=== PATIENT | male | born 1940 | race Caucasian/White ===

== ENCOUNTER 2018-01-13 20:11 | Inpatient (IN) | payer OTHER ==
[~2018-01-13] VITALS: Ht 160 cm; Wt 74.8 kg
[2018-01-13] MEDS ORDERED: DURAGESIC1 EAC1 (20:19)
[2018-01-13] MEDS ORDERED: TAMS0.4C (20:20)
[2018-01-13] MEDS ORDERED: XARELTO15 MG (20:20)
[2018-01-13] MEDS ORDERED: LASIX20 MG (20:20)
[2018-01-13] MEDS ORDERED: RELAFEN (20:21)
[2018-01-13] MEDS ORDERED: DAFLONEX-XL TA1 EACH (20:21)
[2018-01-19] MEDS ORDERED: INTEGRA F CAPS1 EACH PO (18:31)
[2018-01-19] MEDS ORDERED: OXYC1TAB9 PO (18:32)
== END 2018-01-19 23:02 | disposition home or self-care (01) | DRG 470 ==
LOC: ER 20:11 → SURG 01-14 06:38 → MEDI 01-14 06:38 → SURG 01-17 19:02
PROVIDERS: Orthopaedic Surgery
PROC: 0MBM0ZZ Excision of Left Hip Bursa and Ligament, Open Approach (ICD-10-PCS; 2018-01-17)
PROC: 0SRS0JZ Replacement of Left Hip Joint, Femoral Surface with Synthetic Substitute, Open Approach (ICD-10-PCS; principal; 2018-01-17 13:00)
DX: S72.032A Displaced midcervical fracture of left femur, initial encounter for closed fracture (principal); C79.51 Secondary malignant neoplasm of bone; M81.0 Age-related osteoporosis without current pathological fracture; W19.XXXA Unspecified fall, initial encounter; D63.8 Anemia in other chronic diseases classified elsewhere; E11.9 Type 2 diabetes mellitus without complications; I87.8 Other specified disorders of veins; I10 Essential (primary) hypertension; C61 Malignant neoplasm of prostate; J45.998 Other asthma; M10.9 Gout, unspecified; Y92.89 Other specified places as the place of occurrence of the external cause; Y93.89 Activity, other specified; Z95.0 Presence of cardiac pacemaker

== ENCOUNTER 2018-01-27 20:05 | Emergency (ER) | payer OTHER ==
[~2018-01-27] VITALS: Ht 162.6 cm; Wt 74.8 kg
[~2018-01-27 20:05] MED LIST: DAFLONEX-XL TA1 EACH; DURAGESIC1 EAC1; INTEGRA F CAPS1 EACH PO; LASIX20 MG; OXYC1TAB9 PO; RELAFEN; TAMS0.4C; XARELTO15 MG
== END 2018-01-27 23:04 | disposition home or self-care (01) ==
LOC: ER 20:05
DX: T81.31XA Disruption of external operation (surgical) wound, not elsewhere classified, initial encounter (principal); I10 Essential (primary) hypertension; Z74.01 Bed confinement status; Y83.8 Other surgical procedures as the cause of abnormal reaction of the patient, or of later complication, without mention of misadventure at the time of the procedure; Y92.89 Other specified places as the place of occurrence of the external cause

== ENCOUNTER 2018-01-28 16:02 | Emergency (ER) | payer OTHER ==
[~2018-01-28] VITALS: Ht 160 cm; Wt 74.8 kg
== END 2018-01-28 22:22 | disposition home or self-care (01) ==
LOC: ER 16:02
DX: L76.34 Postprocedural seroma of skin and subcutaneous tissue following other procedure (principal); D64.89 Other specified anemias; I10 Essential (primary) hypertension

== ENCOUNTER 2018-02-04 17:16 | Emergency (ER) | payer OTHER ==
[~2018-02-04] VITALS: Ht 160 cm; Wt 74.8 kg
[2018-02-04] MEDS ORDERED: CASODEX50 MG (17:46)
[2018-02-04] MEDS ORDERED: OMEPRAZOLE40 MG (17:46)
[2018-02-04] MEDS ORDERED: ENALAPRIL MALEA10 MG (17:46)
[2018-02-04] MEDS ORDERED: CARVEDILOL25 MG (17:46)
[2018-02-05] MEDS ORDERED: LEVAQUIN750 MG PO (16:02)
== END 2018-02-05 16:48 | disposition home or self-care (01) ==
LOC: ER 17:16
DX: J20.8 Acute bronchitis due to other specified organisms (principal); D63.8 Anemia in other chronic diseases classified elsewhere; I10 Essential (primary) hypertension; E11.9 Type 2 diabetes mellitus without complications; C61 Malignant neoplasm of prostate; C79.51 Secondary malignant neoplasm of bone

== ENCOUNTER 2018-07-15 19:42 | Inpatient (IN) | payer OTHER ==
[~2018-07-15] VITALS: Ht 160 cm; Wt 61.2 kg
[~2018-07-15 19:42] MED LIST changes: +CARVEDILOL25 MG; +CASODEX50 MG; +ENALAPRIL MALEA10 MG; +LEVAQUIN750 MG PO; +OMEPRAZOLE40 MG
== END 2018-07-20 20:56 | disposition home or self-care (01) | DRG 292 ==
LOC: ER 19:42 → MEDJ 07-16 09:11 → SEC-K 07-16 09:11 → MEDJ 07-16 10:22
PROVIDERS: ADMIT Internal Medicine
PROC: 4A033R1 Measurement of Arterial Saturation, Peripheral, Percutaneous Approach (ICD-10-PCS; 2018-07-16)
PROC: 3E0F7GC Introduction of Other Therapeutic Substance into Respiratory Tract, Via Natural or Artificial Opening (ICD-10-PCS; 2018-07-16)
PROC: 4A12X4Z Monitoring of Cardiac Electrical Activity, External Approach (ICD-10-PCS; 2018-07-16)
PROC: B246ZZZ Ultrasonography of Right and Left Heart (ICD-10-PCS; principal; 2018-07-17)
PROC: 30233N1 Transfusion of Nonautologous Red Blood Cells into Peripheral Vein, Percutaneous Approach (ICD-10-PCS; 2018-07-17)
DX: I11.0 Hypertensive heart disease with heart failure (principal); C79.51 Secondary malignant neoplasm of bone; I48.1 Persistent atrial fibrillation; I50.43 Acute on chronic combined systolic (congestive) and diastolic (congestive) heart failure; Z95.0 Presence of cardiac pacemaker; R60.1 Generalized edema; R60.0 Localized edema; C61 Malignant neoplasm of prostate; D63.8 Anemia in other chronic diseases classified elsewhere; Z79.01 Long term (current) use of anticoagulants; E88.09 Other disorders of plasma-protein metabolism, not elsewhere classified; R97.21 Rising PSA following treatment for malignant neoplasm of prostate